=== PATIENT | male | born 1950 | race Caucasian/White ===

== ENCOUNTER 2017-04-25 00:58 | Observation (INO) | payer MEDICARE ==
[~2017-04-25] VITALS: Ht 180.3 cm; Wt 93.0 kg
[2017-04-25] VITALS (14 sets, daily range): BP systolic 135–182; BP diastolic 72–86; PULSE 59–82; RESP 16–20; TEMP 97.9–99.3; O2SAT 88–97
[~2017-04-25 00:58] MED LIST: CLIN150 PO; [UNRECOGNIZED DRUG - REMARK]; [UNRECOGNIZED DRUG - REMARK]
[2017-04-25] MEDS ORDERED: GLIP5TAB8 PO (01:19)
[2017-04-25] MEDS ORDERED: METF500T PO (01:19)
[2017-04-25] MEDS ORDERED: OFFICE MEDICATION PO ×2 (01:19)
--- NOTE | 2017-04-25 01:28 | PD ---
HPI Chief Complaint: Respiratory Symptoms Time Seen by Provider: 01:16 Travel History International Travel<30 days: No Contact w/Intl Traveler<30days: No Traveled to known affect area: No History of Present Illness HPI Patient is 67-year-old male with history of hypertension and diabetes, who presents to emergency room with his with complaints of not feeling well. Patient's reports that patient appeared short of breath tonight. Reports that he woke up from sleep complaining of shortness of breath. Patient reports that he then began to feel chest pain which radiated to his back. Patient reports that he has complete resolution of symptoms at this time. Patient with no chest pain at this time. Patient reports that he has a past smoker, he quit smoking tobacco about 10 years ago. Patient denies any recent travels or trips , denies history of PE or DVT. Patient presents the emergency room hypoxic with a pulse ox of 89% on room air. He does not use oxygen at home, denies history of COPD. Patient denies any recent travels or trips. PFSH Past Medical History Cancer: Yes (PROSTATE) Cardiovascular Problems: Yes Diabetes: Yes (TYPE 2) Diminished Hearing: No Radiation Therapy: Yes (PROSTATE CANCER) Past Surgical History Other Surgery: Yes (PROSTATE CRYOABLATION) Social History Alcohol Use: Yes (BEER DAILY) Tobacco Use: No Substance Use: No Allergies-Medications (Allergen,Severity, Reaction): Coded Allergies: No Known Allergies (Verified , 04/25/17) Reported Meds & Prescriptions Reported Meds & Active Scripts Active Reported Office Medication (Miscellaneous Medication) Misc 0.5 Tab PO HS Office Medication (Miscellaneous Medication) Misc 1 Tab PO AM Glipizide 5 Mg Tab 5 Mg PO BIDAC Take 30 minutes before a meal Metformin (Metformin HCl) 500 Mg Tab 500 Mg PO BIDPC With meals Review of Systems General / Constitutional: No: Fever Eyes: No: Visual changes HENT: No: Headaches Cardiovascular: Positive: Chest Pain or Discomfort Respiratory: Positive: Cough, No: Shortness of Breath Gastrointestinal: No: Abdominal Pain Genitourinary: No: Dysuria Musculoskeletal: No: Pain Skin: No Rash Neurologic: No: Weakness Psychiatric: No: Depression Endocrine: No: Polydipsia Hematologic/Lymphatic: No: Easy Bruising Physical Exam Narrative GENERAL: Mild distress SKIN: Focused skin assessment warm/dry. HEAD: Atraumatic. Normocephalic. EYES: Pupils equal and round. No scleral icterus. No injection or drainage. ENT: No nasal bleeding or discharge. Mucous membranes pink and moist. NECK: Trachea midline. No JVD. CARDIOVASCULAR: Regular rate and rhythm. No murmur appreciated. RESPIRATORY: No accessory muscle use. Clear to auscultation. Breath sounds equal bilaterally. GASTROINTESTINAL: Abdomen soft, non-tender, nondistended. Hepatic and splenic margins not palpable. MUSCULOSKELETAL: No obvious deformities. No clubbing. No cyanosis. No edema. NEUROLOGICAL: Awake and alert. No obvious cranial nerve deficits. Motor grossly within normal limits. Normal speech. PSYCHIATRIC: Appropriate mood and affect; insight and judgment normal. Data Data Last Documented VS Vital Signs Date Time Temp Pulse Resp B/P (MAP) Pulse Ox O2 Delivery O2 Flow Rate FiO2 04/25/17 03:00 73 19 163/77 (105) 96 Nasal Cannula 2.00 04/25/17 01:14 98.2 Orders Orders Electrocardiogram (04/25/17 01:16) B-Type Natriuretic Peptide (04/25/17 01:16) Complete Blood Count With Diff (04/25/17 01:16) Comprehensive Metabolic Panel (04/25/17 01:16) Magnesium (Mg) (04/25/17 01:16) Prothrombin Time / Inr (Pt) (04/25/17 01:16) Act Partial Throm Time (Ptt) (04/25/17 01:16) Troponin I (04/25/17 01:16) Lipase (04/25/17 01:16) Chest, Single Ap (04/25/17 01:16) Ecg Monitoring (04/25/17 01:16) Bilateral Bp Monitoring (04/25/17 01:16) Iv Access Insert/Monitor (04/25/17 01:16) Oximetry (04/25/17 01:16) Sodium Chloride 0.9% Flush (Ns Flush) (04/25/17 01:30) Cta Thor Abd Aorta W Iv C W3d (04/25/17 01:16) Type And Screen (04/25/17 01:16) Sodium Chlor 0.9% 1000 Ml Inj (Ns 1000 M (04/25/17 01:30) Arterial Blood Gas (Abg) (04/25/17 ) Iohexol 350 Inj (Omnipaque 350 Inj) (04/25/17 02:43) Admit Order (Ed Use Only) (04/25/17 03:36) Labs Laboratory Tests Test 04/25/17 01:32 04/25/17 02:05 White Blood Count 6.2 TH/MM3 Red Blood Count 4.44 MIL/MM3 Hemoglobin 14.3 GM/DL Hematocrit 41.5 % Mean Corpuscular Volume 93.5 FL Mean Corpuscular Hemoglobin 32.1 PG Mean Corpuscular Hemoglobin Concent 34.3 % Red Cell Distribution Width 13.0 % Platelet Count 170 TH/MM3 Mean Platelet Volume 9.6 FL Neutrophils (%) (Auto) 62.8 % Lymphocytes (%) (Auto) 27.1 % Monocytes (%) (Auto) 7.4 % Eosinophils (%) (Auto) 2.2 % Basophils (%) (Auto) 0.5 % Neutrophils # (Auto) 3.9 TH/MM3 Lymphocytes # (Auto) 1.7 TH/MM3 Monocytes # (Auto) 0.5 TH/MM3 Eosinophils # (Auto) 0.1 TH/MM3 Basophils # (Auto) 0.0 TH/MM3 CBC Comment DIFF FINAL Differential Comment Prothrombin Time 10.5 SEC Prothromb Time International Ratio 1.0 RATIO Activated Partial Thromboplast Time 22.8 SEC Blood Urea Nitrogen 13 MG/DL Creatinine 1.29 MG/DL Random Glucose 305 MG/DL Total Protein 7.4 GM/DL Albumin 3.6 GM/DL Calcium Level 8.8 MG/DL Magnesium Level 1.9 MG/DL Alkaline Phosphatase 62 U/L Aspartate Amino Transf (AST/SGOT) 24 U/L Alanine Aminotransferase (ALT/SGPT) 55 U/L Total Bilirubin 0.4 MG/DL Sodium Level 139 MEQ/L Potassium Level 3.8 MEQ/L Chloride Level 101 MEQ/L Carbon Dioxide Level 28.2 MEQ/L Anion Gap 10 MEQ/L Estimat Glomerular Filtration Rate 55 ML/MIN Troponin I LESS THAN 0.02 NG/ML B-Type Natriuretic Peptide 64 PG/ML Lipase 238 U/L Blood Gas Puncture Site RT RADIAL Blood Gas Patient Temperature 98.6 Blood Gas HCO3 23 mmol/L Blood Gas Base Excess -1.6 mmol/L Blood Gas Oxygen Saturation 90 % Arterial Blood pH 7.39 Arterial Blood Partial Pressure CO2 39 mmHg Arterial Blood Partial Pressure O2 64 mmHG Arterial Blood Oxygen Content 16.9 Vol % Arterial Blood Carboxyhemoglobin 1.2 % Arterial Blood Methemoglobin 0.6 % Blood Gas Hemoglobin 13.4 G/DL Oxygen Delivery Device ROOM AIR Blood Gas Inspired Oxygen 21 % MDM Medical Decision Making Medical Screen Exam Complete: Yes Emergency Medical Condition: Yes Medical Record Reviewed: Yes Interpretation(s) EKG at 0114: Sinus leeanne at 56bpm, qt/qtc: 418/410, no acute st or t wave changes Vital Signs Date Time Temp Pulse Resp B/P (MAP) Pulse Ox O2 Delivery O2 Flow Rate FiO2 04/25/17 01:20 61 17 150/76 (100) 93 Nasal Cannula 2.00 04/25/17 01:15 17 93 Nasal Cannula 2.00 04/25/17 01:14 98.2 59 20 161/77 (105) 88 04/25/17 01:02 97.9 60 16 176/80 (112) 88 Room Air Differential Diagnosis Differential includes aortic dissection, PE, pneumothorax, pneumonia, ACS, arrhythmia Narrative Course Patient hypoxic on emergency room, pulse ox is 88 -89% on room air. Patient reports that he woke up from sleep with shortness breath, with chest pain radiating to his back. Patient with resolution of symptoms at this time. Patient was placed on a bus driver/monitor upon arrival to the emergency room. Lab work including xray of chest and CTA to rule out dissection ordered. Will continue to monitor on a bus driver/monitor. Vital Signs Date Time Temp Pulse Resp B/P (MAP) Pulse Ox O2 Delivery O2 Flow Rate FiO2 04/25/17 03:00 73 19 163/77 (105) 96 Nasal Cannula 2.00 04/25/17 01:22 93 Nasal Cannula 2.00 04/25/17 01:20 61 17 150/76 (100) 93 Nasal Cannula 2.00 04/25/17 01:15 17 93 Nasal Cannula 2.00 04/25/17 01:14 98.2 59 20 161/77 (105) 88 04/25/17 01:02 97.9 60 16 176/80 (112) 88 Room Air Laboratory Tests Test 04/25/17 01:32 04/25/17 02:05 White Blood Count 6.2 TH/MM3 (4.0-11.0) Red Blood Count 4.44 MIL/MM3 (4.50-5.90) Hemoglobin 14.3 GM/DL (13.0-17.0) Hematocrit 41.5 % (39.0-51.0) Mean Corpuscular Volume 93.5 FL (80.0-100.0) Mean Corpuscular Hemoglobin 32.1 PG (27.0-34.0) Mean Corpuscular Hemoglobin Concent 34.3 % (32.0-36.0) Red Cell Distribution Width 13.0 % (11.6-17.2) Platelet Count 170 TH/MM3 (150-450) Mean Platelet Volume 9.6 FL (7.0-11.0) Neutrophils (%) (Auto) 62.8 % (16.0-70.0) Lymphocytes (%) (Auto) 27.1 % (9.0-44.0) Monocytes (%) (Auto) 7.4 % (0.0-8.0) Eosinophils (%) (Auto) 2.2 % (0.0-4.0) Basophils (%) (Auto) 0.5 % (0.0-2.0) Neutrophils # (Auto) 3.9 TH/MM3 (1.8-7.7) Lymphocytes # (Auto) 1.7 TH/MM3 (1.0-4.8) Monocytes # (Auto) 0.5 TH/MM3 (0-0.9) Eosinophils # (Auto) 0.1 TH/MM3 (0-0.4) Basophils # (Auto) 0.0 TH/MM3 (0-0.2) CBC Comment DIFF FINAL Differential Comment Prothrombin Time 10.5 SEC (9.8-11.6) Prothromb Time International Ratio 1.0 RATIO Activated Partial Thromboplast Time 22.8 SEC (24.3-30.1) Blood Urea Nitrogen 13 MG/DL (7-18) Creatinine 1.29 MG/DL (0.60-1.30) Random Glucose 305 MG/DL (74-106) Total Protein 7.4 GM/DL (6.4-8.2) Albumin 3.6 GM/DL (3.4-5.0) Calcium Level 8.8 MG/DL (8.5-10.1) Magnesium Level 1.9 MG/DL (1.5-2.5) Alkaline Phosphatase 62 U/L (45-117) Aspartate Amino Transf (AST/SGOT) 24 U/L (15-37) Alanine Aminotransferase (ALT/SGPT) 55 U/L (12-78) Total Bilirubin 0.4 MG/DL (0.2-1.0) Sodium Level 139 MEQ/L (136-145) Potassium Level 3.8 MEQ/L (3.5-5.1) Chloride Level 101 MEQ/L (98-107) Carbon Dioxide Level 28.2 MEQ/L (21.0-32.0) Anion Gap 10 MEQ/L (5-15) Estimat Glomerular Filtration Rate 55 ML/MIN (>89) Troponin I LESS THAN 0.02 NG/ML B-Type Natriuretic Peptide 64 PG/ML (0-100) Lipase 238 U/L (73-393) Blood Gas Puncture Site RT RADIAL Blood Gas Patient Temperature 98.6 Blood Gas HCO3 23 mmol/L (22-26) Blood Gas Base Excess -1.6 mmol/L (-2-2) Blood Gas Oxygen Saturation 90 % (90-100) Arterial Blood pH 7.39 (7.380-7.420) Arterial Blood Partial Pressure CO2 39 mmHg (38-42) Arterial Blood Partial Pressure O2 64 mmHG (61-120) Arterial Blood Oxygen Content 16.9 Vol % (12.0-20.0) Arterial Blood Carboxyhemoglobin 1.2 % (0-4) Arterial Blood Methemoglobin 0.6 % (0-2) Blood Gas Hemoglobin 13.4 G/DL (12.0-16.0) Oxygen Delivery Device ROOM AIR Blood Gas Inspired Oxygen 21 % Last Impressions Chest X-Ray 04/25/17115 Signed Impressions: Service Date/Time: Tuesday, April 25, 2017 01:17 - CONCLUSION: No acute disease. Karl Frazier Jr., MD Aorta CTA 04/25/17115 Signed Impressions: Service Date/Time: Tuesday, April 25, 2017 02:41 - CONCLUSION: 1. No acute abnormality. 2. Right upper lobe atelectasis. 3. Cardiomegaly. 4. Moderate size hiatal hernia. 5. Hepatic steatosis. 6. Colonic diverticulosis. Karl Frazier Jr., MD Patient reevaluated, patient reports that he is feeling much better at this time. CBC: WNL BMP: glucose 305 trop less than 0.02 ABG: wnl I am unsure why patient was initially hypoxic upon arrival to emergency room. Patient currently with a pulse ox of 90% on 2 L. CTA shows no acute abnormalities. Plan to observce him in the chest pain unit overnight. Patient agreeable to plan of care Diagnosis Primary Impression: Chest pain Qualified Codes: R07.9 - Chest pain, unspecified Admitting Information Admitting Physician Requests: Observation Terri Evans DO Apr 25, 2017 01:28
[2017-04-25] MEDS ORDERED: SODIUM CHLOR 0.9% 1000 ML INJ 1,000 ML IV ONE (01:30)
[2017-04-25] MEDS ORDERED: SODIUM CHLORIDE 0.9% FLUSH 10 ML FLUSH IVF PRN (01:30)
--- NOTE | 2017-04-25 01:35 | RADRPT ---
EXAM DATE/TIME: 04/25/2017 01:17 [facility] COMPARISON: No previous studies available for comparison. INDICATIONS : Pt had shortness of breath earlier today. MEDICAL HISTORY : None. SURGICAL HISTORY : None. ENCOUNTER: Initial ACUITY: 1 day PAIN SCORE: 7/10 LOCATION: Bilateral chest FINDINGS: A single view of the chest demonstrates the lungs to be symmetrically aerated without evidence of mas s, infiltrate or effusion. The cardiomediastinal contours are unremarkable. Osseous structures are intact. CONCLUSION: No acute disease. Karl Frazier Jr., MD on April 25, 2017 at 1:34 Board Certified Radiologist. This report was verified electronically.
[2017-04-25 01:46] LABS: AUTOMATED NEUTROPHIL # 3.9 TH/MM3 (1.8-7.7); BASOPHIL % 0.5 % (0.0-2.0); EOSINOPHIL # 0.1 TH/MM3 (0-0.4); EOSINOPHIL % 2.2 % (0.0-4.0); HEMATOCRIT 41.5 % (39.0-51.0); HEMO FLAGS DIFF FINAL; LYMPH % 27.1 % (9.0-44.0); LYMPHOCYTE # 1.7 TH/MM3 (1.0-4.8); MEAN CELL VOLUME 93.5 FL (80.0-100.0); MEAN CORPUSCULAR HEMOGLOBIN 32.1 PG (27.0-34.0); MEAN CORPUSCULAR HGB CONC 34.3 % (32.0-36.0); MONO % 7.4 % (0.0-8.0); NEUT % 62.8 % (16.0-70.0); PLATELET COUNT 170 TH/MM3 (150-450); RED BLOOD COUNT 4.44 MIL/MM3 (4.50-5.90); WHITE BLOOD COUNT 6.2 TH/MM3 (4.0-11.0)
[2017-04-25 01:57] LABS: APTT (PATIENT) 22.8 SEC (24.3-30.1); PROTHROMBIN TIME - PATIENT 10.5 SEC (9.8-11.6)
[2017-04-25 02:06] LABS: ALKALINE PHOSPHATASE 62 U/L (45-117); TOTAL BILIRUBIN ADULT 0.4 MG/DL (0.2-1.0)
[2017-04-25 02:13] LABS: ALT (GPT) 55 U/L (12-78); ANION GAP 10 MEQ/L (5-15); AST (GOT) 24 U/L (15-37); BICARBONATE 28.2 MEQ/L (21.0-32.0); BLOOD UREA NITROGEN 13 MG/DL (7-18); CHLORIDE 101 MEQ/L (98-107); GLOMERULAR FILTRATION RATE 55 ML/MIN (>89); MAGNESIUM 1.9 MG/DL (1.5-2.5); POTASSIUM 3.8 MEQ/L (3.5-5.1); SODIUM (NA) 139 MEQ/L (136-145)
[2017-04-25] MEDS ORDERED: IOHEXOL 350 MG/ML 10 ML VIAL (for RAD DIAG) IVCONTRAST ONE (02:43)
[2017-04-25 03:14] LABS: BLOOD GAS BASE EXCESS -1.6 mmol/L (-2-2); BLOOD GAS CARBOXYHEMOGLOBIN 1.2 % (0-4); BLOOD GAS HCO3 23 mmol/L (22-26); BLOOD GAS METHEMOGLOBIN 0.6 % (0-2); BLOOD GAS O2 HGB SATURATION 90 % (90-100); BLOOD GAS OXYGEN CONTENT 16.9 Vol % (12.0-20.0); BLOOD GAS PCO2 39 mmHg (38-42); BLOOD GAS PO2 64 mmHG (61-120); BLOOD GAS TOTAL HGB 13.4 G/DL (12.0-16.0); CRITICAL VALUE NO; DRAW SITE RT RADIAL; FIO2 21 %; NUMBER OF ARTERIAL PUNCTURES 1; OXYGEN DEVICE ROOM AIR; STAT YES; TEMP CORR TO 98.6; ULNAR PULSE PRESENT
--- NOTE | 2017-04-25 03:24 | RADRPT ---
EXAM DATE/TIME: 04/25/2017 02:41 [facility] COMPARISON: No previous studies available for comparison. INDICATIONS : Chest pain with shortness of breath. IV CONTRAST: 95 cc Omnipaque 350 (iohexol) IV RADIATION DOSE: 22.02 CTDIvol (mGy) MEDICAL HISTORY : Cardiovascular disease. Diabetes mellitus type 2. Carcinoma, prostate. SURGICAL HISTORY : Prostate cryoablation. ENCOUNTER: Initial ACUITY: 1 day PAIN SCALE: 4/10 LOCATION: chest TECHNIQUE: Volumetric scanning was performed using a multi-row detector CT scanner. The data was post processed with a variety of visualization algorithms including full volume maximum intensity projection, multi -planar sliding thin slab reformation, curved planar reformation, and surface rendering techniques. Using automated exposure control and adjustment of the mA and/or kV according to patient size, radiat ion dose was kept as low as reasonably achievable to obtain optimal diagnostic quality images. DICOM format image data is available electronically for review and comparison. FINDINGS: Thoracic/abdominal aorta: Scattered calcified atheromatous plaque. No aneurysmal change or dissection. Heart and mediastinum: The heart is mildly enlarged. No pericardial effusion. Coronary artery atherosclerotic calcifications are noted. Pulmonary arteries are normal in caliber. Moderate size hiatal hernia. No mass or adenopa thy. Lung parenchyma: No mass or infiltrate. No effusion. Other structures: Fat infiltration throughout the liver. Cortical cyst exophytic in the lower pole the left kidney. 3.4 cm in diameter. Hounsfield units 11. Colonic diverticulosis. CONCLUSION: 1. No acute abnormality. 2. Right upper lobe atelectasis. 3. Cardiomegaly. 4. Moderate size hiatal hernia. 5. Hepatic steatosis. 6. Colonic diverticulosis. Karl Frazier Jr., MD on April 25, 2017 at 3:17 Board Certified Radiologist. This report was verified electronically.
[2017-04-25] MEDS ORDERED: IOHEXOL 350 MG/ML 100 ML BTL (for Cath Lab) OTHER ONE (03:39)
[2017-04-25 05:39] LABS: CREATINE KINASE 53 U/L (39-308)
[2017-04-25 08:54] LABS: CREATINE KINASE 47 U/L (39-308)
--- NOTE | 2017-04-25 10:14 | HHI.HP ---
HPI Primary Care Physician Porfirio Zurita MD Chief Complaint Chest pain History of Present Illness 67-year-old male with history of diabetes and hypertension presents to emergency room for further evaluation of chest pain. Onset last evening, pain woke him up from sleep. Location substernal. Characterized as pressure, "like someone sitting on my chest." No radiation of pain. Duration 10 minutes. Associated symptoms included shortness of breath. Denied nausea, vomiting, diaphoresis. No known precipitating or relieving factors. Denies similar pain in the past. Review of Systems General: No fever, chills, or recent illness. Has been in his general state of health. HEENT: No BARRIOS CV: As stated above. Denies any current chest pain or pressure. No palpitations or dizziness. RESP: No SOB, cough, or sputum production. GI: No nausea, vomiting, or bowel changes. EXT: No lower leg edema, no paraesthesias MS: No discomfort or change in ROM NEURO: No difficulty with balance, LOC, motor/sensory deficits PSYCH: No anxiety, depression, or situational stress SKIN: No rashes, no concerning lesions Past Family Social History Allergies: Coded Allergies: No Known Allergies (Verified , 04/25/17) Past Medical History Diabetes type II, hypertension, prostate cancer Past Surgical History Prostate cryoablation Reported Medications Active Reported Office Medication (Miscellaneous Medication) Misc 0.5 Tab PO HS Office Medication (Miscellaneous Medication) Misc 1 Tab PO AM Glipizide 5 Mg Tab 5 Mg PO BIDAC Take 30 minutes before a meal Metformin (Metformin HCl) 500 Mg Tab 500 Mg PO BIDPC With meals Lisinopril 20 mg PO QD Simvastatin 40 mg PO QD dose unknown Active Ordered Medications Current Medications Medications (Trade) Dose Ordered Sig/Lupe Route Start Time Stop Time Status Last Admin (NS Flush) 2 ml UNSCH PRN IVF 04/25/17 01:30 Family History Noncontributory for early onset cardiovascular disease. Both parents lived into their 90s. Social History Known diabetes and hypertension. On appropriate statin therapy with diagnosis of diabetes. No known coronary artery disease. Former smoker, quit 10 years ago. Prior to quitting smoked 40 years. Endorses a daily beer. Active, somewhat limited due to a "bad left knee and both hips." Past cardiac testing None Physical Exam Vital Signs Vital Signs Date Time Temp Pulse Resp B/P (MAP) Pulse Ox O2 Delivery O2 Flow Rate FiO2 04/25/17 09:51 98.7 78 16 174/80 (111) 94 04/25/17 07:32 82 16 175/81 (112) 96 Room Air 04/25/17 04:00 78 19 162/75 (104) 97 Room Air 04/25/17 04:00 96 Nasal Cannula 2.00 04/25/17 03:00 73 19 163/77 (105) 96 Nasal Cannula 2.00 04/25/17 01:22 93 Nasal Cannula 2.00 04/25/17 01:20 61 17 150/76 (100) 93 Nasal Cannula 2.00 04/25/17 01:15 17 93 Nasal Cannula 2.00 04/25/17 01:14 98.2 59 20 161/77 (105) 88 04/25/17 01:02 97.9 60 16 176/80 (112) 88 Room Air Physical Exam GENERAL: Alert WN, WD, NAD, pleasant, male HEAD: NC, AT CV: RRR, without murmur, rub, gallop, no JVD, S1-S2 no S3-S4. RESP: Clear lungs throughout bilateral, no crackles, wheeze, rhonchi, symmetrical chest rise, nonlabored, able to speak in full sentences ABD: Soft, NT, ND, no masses, positive bowel tones BACK: No CVAT, no scoliosis EXT: Pulses +24, no dependent edema MS: Normal tone 4 extremities, nontender, no obvious deformities, full range of motion NEURO: CN II through CN XII grossly intact, motor strength 5/5 PSYCH: A+O 3, pleasant affect, appropriate speech, appropriate mood and affect , insight and judgment SKIN: Normal turgor, normal texture, no lesions, no rashes, brisk cap refill, even hair distribution Laboratory Laboratory Tests Test 04/25/17 01:32 04/25/17 02:05 04/25/17 04:58 04/25/17 08:05 White Blood Count 6.2 Red Blood Count 4.44 Hemoglobin 14.3 Hematocrit 41.5 Mean Corpuscular Volume 93.5 Mean Corpuscular Hemoglobin 32.1 Mean Corpuscular Hemoglobin Concent 34.3 Red Cell Distribution Width 13.0 Platelet Count 170 Mean Platelet Volume 9.6 Neutrophils (%) (Auto) 62.8 Lymphocytes (%) (Auto) 27.1 Monocytes (%) (Auto) 7.4 Eosinophils (%) (Auto) 2.2 Basophils (%) (Auto) 0.5 Neutrophils # (Auto) 3.9 Lymphocytes # (Auto) 1.7 Monocytes # (Auto) 0.5 Eosinophils # (Auto) 0.1 Basophils # (Auto) 0.0 CBC Comment DIFF FINAL Differential Comment Prothrombin Time 10.5 Prothromb Time International Ratio 1.0 Activated Partial Thromboplast Time 22.8 Blood Urea Nitrogen 13 Creatinine 1.29 Random Glucose 305 Total Protein 7.4 Albumin 3.6 Calcium Level 8.8 Magnesium Level 1.9 Alkaline Phosphatase 62 Aspartate Amino Transf (AST/SGOT) 24 Alanine Aminotransferase (ALT/SGPT) 55 Total Bilirubin 0.4 Sodium Level 139 Potassium Level 3.8 Chloride Level 101 Carbon Dioxide Level 28.2 Anion Gap 10 Estimat Glomerular Filtration Rate 55 Troponin I LESS THAN 0.02 LESS THAN 0.02 LESS THAN 0.02 B-Type Natriuretic Peptide 64 Lipase 238 Blood Gas Puncture Site RT RADIAL Blood Gas Patient Temperature 98.6 Blood Gas HCO3 23 Blood Gas Base Excess -1.6 Blood Gas Oxygen Saturation 90 Arterial Blood pH 7.39 Arterial Blood Partial Pressure CO2 39 Arterial Blood Partial Pressure O2 64 Arterial Blood Oxygen Content 16.9 Arterial Blood Carboxyhemoglobin 1.2 Arterial Blood Methemoglobin 0.6 Blood Gas Hemoglobin 13.4 Oxygen Delivery Device ROOM AIR Blood Gas Inspired Oxygen 21 Total Creatine Kinase 53 47 Result Diagram: 04/25/1713104/25/17131 Imaging Last Impressions Chest X-Ray 04/25/17115 Signed Impressions: Service Date/Time: Tuesday, April 25, 2017 01:17 - CONCLUSION: No acute disease. Karl Frazier Jr., MD Aorta CTA 04/25/17115 Signed Impressions: Service Date/Time: Tuesday, April 25, 2017 02:41 - CONCLUSION: 1. No acute abnormality. 2. Right upper lobe atelectasis. 3. Cardiomegaly. 4. Moderate size hiatal hernia. 5. Hepatic steatosis. 6. Colonic diverticulosis. Karl Frazier Jr., MD Course EKG Normal sinus rhythm, normal axis, no ST or T-segment change Caprini VTE Risk Assessment Caprini VTE Risk Assessment: Mod/High Risk (score >= 2) Caprini Risk Assessment Model Point Value = 1 Point Value = 2 Point Value = 3 Point Value = 5 Age 41-60 Minor surgery BMI > 25 kg/m2 Swollen legs Varicose veins or History of unexplained or recurrent spontaneous Oral contraceptives or hormone replacement Sepsis (< 1 month) Serious lung disease, including pneumonia (< 1 month) Abnormal pulmonary function Acute myocardial infarction Congestive heart failure (< 1 month) History of inflammatory bowel disease Medical patient at bed rest Age 61-74 Arthroscopic surgery Major open surgery (> 45 min) Laparoscopic surgery (> 45 min) Malignancy Confined to bed (> 72 hours) Immobilizing plaster cast Central venous access Age >= 75 History of VTE Family history of VTE Factor V Leiden Prothrombin [id number] Lupus anticoagulant Anticardiolipin antibodies Elevated serum homocysteine Heparin-induced thrombocytopenia Other congenital or acquired thrombophilia Stroke (< 1 month) Elective arthroplasty Hip, pelvis, or leg fracture Acute spinal cord injury (< 1 month) Prophylaxis Regimen Total Risk Factor Score Risk Level Prophylaxis Regimen 0-1 Low Early ambulation 2 Moderate Order ONE of the following: *Sequential Compression Device (SCD) *Heparin 5000 units SQ BID 3-4 Higher Order ONE of the following medications: *Heparin 5000 units SQ TID *Enoxaparin/Lovenox 40 mg SQ daily (WT < 150 kg, CrCl > 30 mL/min) *Enoxaparin/Lovenox 30 mg SQ daily (WT < 150 kg, CrCl > 10-29 mL/min) *Enoxaparin/Lovenox 30 mg SQ BID (WT < 150 kg, CrCl > 30 mL/min) AND/OR *Sequential Compression Device (SCD) 5 or more Highest Order ONE of the following medications: *Heparin 5000 units SQ TID (Preferred with Epidurals) *Enoxaparin/Lovenox 40 mg SQ daily (WT < 150 kg, CrCl > 30 mL/min) *Enoxaparin/Lovenox 30 mg SQ daily (WT < 150 kg, CrCl > 10-29 mL/min) *Enoxaparin/Lovenox 30 mg SQ BID (WT < 150 kg, CrCl > 30 mL/min) AND *Sequential Compression Device (SCD) Assessment and Plan Assessment and Plan #1 Chest pain-admitted to chest pain center. Ruled out with 3 sets of EKGs, cardiac enzymes, and monitored overnight. Seen and evaluated by Dr. Jorge Cotto. Will add d-dimer, if unremarkable will proceed with cardiac stress testing. Will need to complete a chemical stress test he states he is unable to walk long distances due to chronic knee and hip pain. Patient agreeable to plan of care. #2 Diabetes-SSI moderate dose coverage, hold oral anti-glycemic medications #3 Hypertension-continue to monitor, continue lisinopril 16:45 Lexiscan results showing mild severity, reversibility in inferior wall. Discussed findings with Dr. Cotto, will consult sheep farm worker and hospitalist. Explained results and plan of care in length with both patient and his . Agreeable to plan of care. Latoya Samuels Apr 25, 2017 10:14
[2017-04-25] MEDS ORDERED: DEXTROSE 50% IN WATER 50 ML VIAL(D50) IV PRN (10:15)
[2017-04-25] MEDS ORDERED: GLUCAGON 1 MG/ML VIAL OTHER PRN (10:15)
[2017-04-25] MEDS ORDERED: LISI-515 PO (11:46)
[2017-04-25] MEDS ORDERED: SIMV40TA PO (11:46)
[2017-04-25] MEDS: INSULIN ASPART SUPPLEMENTAL SCALE SQ SCH ×3 (12:00→21:08)
[2017-04-25] MEDS ORDERED: ONDANSETRON HCL 4 MG/2 ML VIAL IV PUSH PRN (12:45)
[2017-04-25] MEDS ORDERED: ACETAMINOPHEN 500 MG CPLT PO PRN (12:45)
[2017-04-25] MEDS ORDERED: NITROGLYCERIN 0.4 MG SL 25 TABS/BTL SL PRN (12:45)
--- NOTE | 2017-04-25 14:01 | EKG ---
Date Performed: 04/25/2017 Time Performed: 08:09:27 PTAGE: 67 years EKG: Sinus rhythm BORDERLINE ECG PREVIOUS TRACING : 04/25/2017 04.25 Since previous tracing, no significant change noted DOCTOR: Jorge Cotto Interpretating Date/Time 04/25/2017 13:59:46
--- NOTE | 2017-04-25 14:02 | EKG ---
Date Performed: 04/25/2017 Time Performed: 04:25:59 PTAGE: 67 years EKG: Sinus rhythm POSSIBLE RIGHT VENTRICULAR CONDUCTION DELAY BORDERLINE ECG PREVIOUS TRACING : 04/25/2017 01.14 Since previous tracing, no significant change noted DOCTOR: Jorge Cotto Interpretating Date/Time 04/25/2017 14:00:46
--- NOTE | 2017-04-25 14:04 | EKG ---
Date Performed: 04/25/2017 Time Performed: 01:14:33 PTAGE: 67 years EKG: SINUS BRADYCARDIA BORDERLINE ECG PREVIOUS TRACING : 10/27/1999 13.57 Since previous tracing, no significant change noted DOCTOR: Jorge Cotto Interpretating Date/Time 04/25/2017 14:02:41
[2017-04-25] MEDS ORDERED: REGADENOSON INJ 0.4 MG/5 ML SYR ONE (14:42)
--- NOTE | 2017-04-25 16:24 | RADRPT ---
EXAM DATE/TIME: 04/25/2017 13:51 [place] COMPARISON: No previous studies available for comparison. INDICATIONS : Substernal chest pain with dyspnea. Angina. DOSE: 26.1 mCi Tc99m Myoview at stress. 8.1 mCi Tc99m Myoview at rest. 0.4 mg Lexiscan STRESS SYMPTOMS: Shortness of breath. EJECTION FRACTION: 42% MEDICAL HISTORY : Carcinoma, prostate. Hypertension. Diabetes mellitus type 2. SURGICAL HISTORY : Prostate. ENCOUNTER: Initial ACUITY: 1 day PAIN SCALE: 5/10 LOCATION: Substernal chest TECHNIQUE: The patient underwent pharmacologic stress with infusion of prescribed dose. Continuous ECG tracing was monitored during stress. Gated SPECT imaging was performed after stress and conventional SPECT i maging was performed at rest. The examination was performed on a SPECT/CT scanner, both attenuation and non-corrected datasets were reviewed. FINDINGS: DISTRIBUTION: The maximum perfused segment at stress is in the septal wall. PERFUSION STUDY: The examination demonstrates a mild in severity, reversible perfusion defect involving the inferior w all. GATED STUDY: There is intact wall motion and thickening without hypokinetic or dyskinetic segments. CONCLUSION: 1. Reversible perfusion defect involving the inferior wall. Myocardial ischemia is not excluded. 2. Ejection fraction is somewhat low at 42%. RISK CATEGORY: Intermediate (1-3% Annual Mortality Rate) Edd Villanueva MD on April 25, 2017 at 16:19 Board Certified Radiologist. This report was verified electronically.
[2017-04-25] MEDS ORDERED: cloNIDine HCL 0.1 MG TAB PO PRN (16:45)
[2017-04-25] MEDS: LISINOPRIL 20 MG TAB PO SCH (17:01)
[2017-04-26] VITALS (12 sets, daily range): BP systolic 137–164; BP diastolic 65–82; PULSE 54–78; RESP 16–18; TEMP 97.6–98.6; O2SAT 94–97
[2017-04-26] MEDS: INSULIN ASPART SUPPLEMENTAL SCALE SQ SCH ×5 (08:00→22:26)
--- NOTE | 2017-04-26 08:43 | HHI.PR ---
Subjective Remarks The patient was initially admitted to the chest pain center and was evaluated by cardiology there underwent stress testing which showed possible ischemia. The patient was transferred to the hospitalist service for further evaluation and cardiology consultation. Follow-up for chest pain. Patient seen with at bedside. Patient states he 's been doing well during hospitalization. And denies any chest pain or shortness of breath He states that prior to admission he was woken up at night with chest heaviness that woke him up from sleep. Otherwise he hasn't noticed any chest pain or shortness breath. No pain with deep breathing. He states his blood sugars have been running higher here than what they were at home, does not know his last A1c. He states in the past she was taking a baby aspirin enzyme, was never prescribed, but has not been taking one recently. He was taking a half tablet of statin at night. Objective Vitals Vital Signs Date Time Temp Pulse Resp B/P (MAP) Pulse Ox O2 Delivery O2 Flow Rate FiO2 04/26/17 05:32 21 04/26/17 04:15 98.6 64 18 139/65 (89) 97 04/26/17 04:00 54 04/26/17 04:00 66 04/26/17 00:00 54 04/26/17 00:00 78 04/25/17 23:12 98.2 70 18 135/72 (93) 96 04/25/17 20:07 99.3 75 18 140/81 (100) 94 04/25/17 20:00 72 04/25/17 17:12 64 04/25/17 17:12 64 04/25/17 16:27 99.3 74 16 182/86 (118) 95 04/25/17 13:10 98.7 72 16 161/78 (105) 96 04/25/17 09:51 98.7 78 16 174/80 (111) 94 I/O 04/25/17 04/25/17 04/25/17 04/26/17 04/26/17 04/26/17 07:00 15:00 23:00 07:00 15:00 23:00 Intake Total 1000 ml Balance 1000 ml Intake IV Total 1000 ml Result Diagram: 04/25/17 01304/25/17 013 Imaging Last Impressions Chest X-Ray 04/25/17 011 Signed Impressions: Service Date/Time: Tuesday, April 25, 2017 01:17 - CONCLUSION: No acute disease. Karl Frazier Jr., MD Aorta CTA 04/25/17 0116 Signed Impressions: Service Date/Time: Tuesday, April 25, 2017 02:41 - CONCLUSION: 1. No acute abnormality. 2. Right upper lobe atelectasis. 3. Cardiomegaly. 4. Moderate size hiatal hernia. 5. Hepatic steatosis. 6. Colonic diverticulosis. Karl Frazier Jr., MD Myocardial Perfusion Scan Nuc Med 04/25/17 0000 Signed Impressions: Service Date/Time: Tuesday, April 25, 2017 13:51 - CONCLUSION: 1. Reversible perfusion defect involving the inferior wall. Myocardial ischemia is not excluded. 2. Ejection fraction is somewhat low at 42%%. RISK CATEGORY: Intermediate (1-3%% Annual Mortality Rate) Edd Villanueva MD Objective Remarks GENERAL: Well-developed well-nourished. Appears comfortable and in no acute distress. SKIN: Warm and dry. No lesions noted. HEENT: Normocephalic. Pupils equal and round. Mucous membranes pink and moist. CARDIOVASCULAR: Regular rate and rhythm. No murmur appreciated. RESPIRATORY: No accessory muscle use. Clear to auscultation. Breath sounds equal bilaterally. GASTROINTESTINAL: Abdomen soft, non-tender, nondistended. Bowel sounds x4. MUSCULOSKELETAL: No obvious deformities. No clubbing or cyanosis. No edema. NEUROLOGICAL: Awake and alert. No focal neurological deficits. Moves upper and lower extremities spontaneously. Normal speech. PSYCHIATRIC: Appropriate mood and affect; insight and judgment normal. A/P Assessment and Plan 67-year-old male with a past medical history of DM, HTN, HLD who presented for chest pain Chest pain: D-dimer mildly elevated, no pain with breathing, Chest CTA with no acute abnormality. ACS ruled out per protocol with unremarkable serial cardiac enzymes and EKGs. Nuclear stress test showed reversible perfusion defect involving the inferior wall. -Started on aspirin -Nitroglycerin as needed -Cardiology consulted, appreciate input -Home statin dose increased to 80 mg, check lipid profile -Monitor on telemetry Diabetes mellitus with hyperglycemia: Blood glucoses have not been well controlled here. -Check hemoglobin A1c -Hold home oral hypoglycemics for now -Monitor Accu-Cheks and cover with SSI as needed Hypertension: Reasonably controlled. -Continue lisinopril -Clonidine if needed DVT prophylaxis: SCDs Discharge Planning Follow-up cardiology recommendations Malick Berg Apr 26, 2017 08:43
[2017-04-26] MEDS: SODIUM CHLOR 0.9% 1000 ML INJ 1,000 ML IV SCH ×2 (08:45→18:45)
[2017-04-26] MEDS: ASPIRIN 325 MG TAB PO SCH (08:49)
[2017-04-26] MEDS: LISINOPRIL 20 MG TAB PO SCH (08:49)
[2017-04-26 12:50] LABS: ANION GAP 8 MEQ/L (5-15); BICARBONATE 25.8 MEQ/L (21.0-32.0); BLOOD UREA NITROGEN 14 MG/DL (7-18); CHLORIDE 103 MEQ/L (98-107); GLOMERULAR FILTRATION RATE 99 ML/MIN (>89); POTASSIUM 4.2 MEQ/L (3.5-5.1); SODIUM (NA) 137 MEQ/L (136-145)
[2017-04-26 12:54] LABS: HDL CHOLESTEROL 40.4 MG/DL (40.0-60.0); LDL CHOLESTEROL 106 MG/DL (0-99)
--- NOTE | 2017-04-26 17:41 | MB ---
cc: HELENE SALAS DATE OF CONSULTATION: 04/26/2017. REASON FOR CONSULTATION: MD ABBY Wilcox/[place] /5:17 PM /5:35 PM
[2017-04-26 18:01] LABS: HEMOGLOBIN A1a 1.3 %; HEMOGLOBIN F 1.4 %; HEMOGLOBIN P3 4.8 %
--- NOTE | 2017-04-26 18:30 | TR ---
Date Performed: 04/25/2017 Time Performed: 14:47:52 DOCTOR: Rajwinder Lopez DRUG LIST: CLINICAL HISTORY: ANGINA REASON FOR TEST: Angina REASON FOR ENDING: OBSERVATION: CONCLUSION: Lexiscan stress test was performed under standard four minute protocol. [place]ion[place] e was injected one minute prior to ending the test. No electrocardiographic abormalities were present to suggest ischemia. Nuclear imaging and interpretation are pending. COMMENTS:
[2017-04-26] MEDS ORDERED: PRAVASTATIN SOD 80 MG TAB PO SCH (21:00)
[2017-04-26] MEDS ORDERED: SODIUM CHLOR 0.9% 1000 ML INJ 1,000 ML IV SCH (22:00)
[2017-04-27] VITALS: PULSE 78
[2017-04-27 03:38] VITALS: BP 156/75; PULSE 61; RESP 18; TEMP 98; O2SAT 95
[2017-04-27] MEDS: SODIUM CHLOR 0.9% 1000 ML INJ 1,000 ML IV SCH (06:14)
[2017-04-27 07:38] VITALS: BP 171/77; PULSE 61; RESP 18; TEMP 98.1; O2SAT 95
[2017-04-27 08:00] VITALS: PULSE 66; PULSE 74
[2017-04-27] MEDS: INSULIN ASPART SUPPLEMENTAL SCALE SQ SCH ×2 (08:00→12:45)
--- NOTE | 2017-04-27 08:16 | HHI.PR ---
Subjective Remarks Follow up for chest pain. The patient reports feeling well again today. Denies any chest pain, palpitations, or shortness of breath. He is going for heart cath today. He denies any other medical complaints at this time. Objective Vitals Vital Signs Date Time Temp Pulse Resp B/P (MAP) Pulse Ox O2 Delivery O2 Flow Rate FiO2 04/27/17 07:38 98.1 61 18 171/77 (108) 95 04/27/17 03:38 98.0 61 18 156/75 (102) 95 04/27/17 00:00 78 04/27/17 00:00 78 04/26/17 23:24 98.4 67 18 137/74 (95) 95 04/26/17 21:45 60 04/26/17 20:39 96 21 04/26/17 20:22 98.0 68 18 164/82 (109) 95 04/26/17 17:23 97.6 68 16 163/79 (107) 96 04/26/17 16:13 69 04/26/17 12:42 98.4 61 18 164/77 (106) 94 04/26/17 08:55 97.8 66 16 147/78 (101) 97 04/26/17 08:43 95 21 Result Diagram: 04/25/17 0132 04/26/17 1135 Imaging Last Impressions Chest X-Ray 04/25/17115 Signed Impressions: Service Date/Time: Tuesday, April 25, 2017 01:17 - CONCLUSION: No acute disease. Karl Frazier Jr., MD Aorta CTA 04/25/17 0116 Signed Impressions: Service Date/Time: Tuesday, April 25, 2017 02:41 - CONCLUSION: 1. No acute abnormality. 2. Right upper lobe atelectasis. 3. Cardiomegaly. 4. Moderate size hiatal hernia. 5. Hepatic steatosis. 6. Colonic diverticulosis. Karl Frazier Jr., MD Myocardial Perfusion Scan Nuc Med 04/25/17 0000 Signed Impressions: Service Date/Time: Tuesday, April 25, 2017 13:51 - CONCLUSION: 1. Reversible perfusion defect involving the inferior wall. Myocardial ischemia is not excluded. 2. Ejection fraction is somewhat low at 42%%. RISK CATEGORY: Intermediate (1-3%% Annual Mortality Rate) Edd Villanueva MD Objective Remarks GENERAL: Well-nourished, well-developed pleasant middle aged male patient in [facility]. SKIN: Warm and dry. No rash. HEENT: Normocephalic. Atraumatic.Pupils equal and round. Mucous membranes pink and moist. CARDIOVASCULAR: Regular rate and rhythm. S1, S2 noted. No murmur appreciated. RESPIRATORY: No accessory muscle use. Clear to auscultation. Breath sounds equal bilaterally. GASTROINTESTINAL: Abdomen soft, non-tender, nondistended. Normoactive bowel sounds x4. MUSCULOSKELETAL: No obvious deformities. Extremities without clubbing, cyanosis , or edema. NEUROLOGICAL: Awake and alert. No obvious cranial nerve deficits. Motor grossly within normal limits. Normal speech. PSYCHIATRIC: Appropriate mood and affect; insight and judgment normal. Medications and IVs Current Medications Medications (Trade) Dose Ordered Sig/Lupe Route Start Time Stop Time Status Last Admin (NS Flush) 2 ml UNSCH PRN IVF 04/25/17 01:30 (D50w (Vial) Inj) 50 ml UNSCH PRN IV 04/25/17 10:15 (Glucagon Inj) 1 mg UNSCH PRN OTHER 04/25/17 10:15 (NovoLOG SUPPLEMENTAL SCALE) 1 ACHS SLIDING SCALE SQ 04/25/17 12:00 04/26/17 22:26 (Tylenol) 500 mg Q4H PRN PO 04/25/17 12:45 (Zofran Inj) 4 mg Q6H PRN IV PUSH 04/25/17 12:45 (Nitrostat Sl) 0.4 mg Q5M PRN SL 04/25/17 12:45 (Aspirin) 325 mg DAILY PO 04/26/17 09:00 04/26/17 08:49 (Prinivil) 20 mg DAILY PO 04/25/17 16:45 04/26/17 08:49 (Catapres) 0.1 mg Q6H PRN PO 04/25/17 16:45 (Pravachol) 80 mg HS PO 04/26/17 21:00 04/26/17 20:09 Sodium Chloride 1,000 ml @ 100 mls/hr Q10H IV 04/26/17 08:45 04/27/17 06:14 A/P Assessment and Plan 67-year-old male with a past medical history of DM, HTN, HLD who presented for chest pain Chest pain: D-dimer mildly elevated, no pain with breathing, Chest CTA with no acute abnormality. ACS ruled out per protocol with unremarkable serial cardiac enzymes and EKGs. Nuclear stress test showed reversible perfusion defect involving the inferior wall. -Started on aspirin daily, Nitroglycerin as needed -Home statin dose increased to 80 mg, lipid profile with elevated LDL 106 -Monitor on telemetry -Cardiology consulted, plan for [facility] today Diabetes mellitus with hyperglycemia: Blood glucoses have not been well controlled here. -hemoglobin A1c 9.3 -Hold home oral hypoglycemics for now -Monitor Accu-Cheks and cover with SSI as needed Hypertension: Reasonably controlled. -Continue lisinopril -Clonidine if needed DVT prophylaxis: SCDs Discharge Planning Further disposition pending [facility] today. 1545hrs: Patient reportedly cleared for discharge by Dr. Carbone s/p [facility]. Will discharge. Discharge patient to home Condition on discharge: Improved Heart Healthy/Diabetic Diet as tolerated Ad Carol activity Rx written: pravastatin 80mg hs, aspirin 81mg daily Follow-up with primary care physician Dr. Zurita in 1 week Mima Olsen PA-C Apr 27, 2017 8:16 am
[2017-04-27] MEDS: LISINOPRIL 20 MG TAB PO SCH (09:37)
[2017-04-27] MEDS: ASPIRIN 325 MG TAB PO SCH (09:37)
[2017-04-27 11:16] VITALS: BP 160/81; PULSE 62; RESP 18; TEMP 98.2; O2SAT 97
[2017-04-27 12:00] VITALS: PULSE 59
[2017-04-27] MEDS ORDERED: HEPARIN-NS/PF INJ 1,000 ML ONE (12:25)
[2017-04-27] MEDS ORDERED: MIDAZOLAM HCL 2 MG/2 ML VIAL ONE (12:26)
[2017-04-27] MEDS ORDERED: HEPARIN SODIUM - IV 10,000 UNITS/10 ML VIAL ONE (13:46)
[2017-04-27] MEDS ORDERED: ASPI-147 PO (15:36)
[2017-04-27] MEDS ORDERED: PRAV80TA PO (15:36)
--- NOTE | 2017-04-27 15:39 | HHI.DCPOC ---
Discharge Care Plan Diagnosis: (1) Chest pain (2) Diabetes mellitus (3) HTN (hypertension) (4) HLD (hyperlipidemia) Goals to Promote Your Health * To prevent worsening of your condition and complications * To maintain your health at the optimal level Directions to Meet Your Goals Take your medications as prescribed Follow your dietary instruction Follow activity as directed Keep your appointments as scheduled Take your immunizations and boosters as scheduled If your symptoms worsen call your PCP, if no PCP go to Urgent Care Center or Emergency Room Smoking is Dangerous to Your Health. Avoid second hand smoke Call the 24-hour hour crisis hotline for domestic abuse at Mima Olsen PA-C Apr 27, 2017 3:39 pm
[2017-04-27] MEDS ORDERED: ISOS30TA3 PO (17:20)
[2017-04-27] MEDS ORDERED: METO25TA6 PO (17:20)
[2017-04-27] MEDS ORDERED: ATOR1TAB18 PO (17:20)
--- NOTE | 2017-04-28 07:51 | MA ---
cc: ANA SALAS DATE 04/27/2017 INDICATION Unstable angina, Class III angina. The procedure is urgent, intermediate probability nuclear marker perfusion study. PROCEDURE PERFORMED 1. Retrograde left heart catheterization with left ventriculography and selective coronary angiography. 2. Moderate sedation. ACCESS SITE Right femoral artery. EQUIPMENT USED A 5-Polish pigtail catheter, 5-Polish JL4 and AR modified coronary artery catheters. MEDICATIONS Versed IV. Fentanyl IV. CONTRAST Omnipaque 80 cc. COMPLICATIONS None. ESTIMATED BLOOD LOSS Less than 10 cc. METHOD OF HEMOSTASIS Manual compression. RESULTS A. HEMODYNAMICS Heart rate 55 beats per minute. Left ventricular end-diastolic pressure 8 mmHg. Left ventricle 140/8. Aorta 140/62/91. B. LEFT VENTRICULOGRAPHY Left ventricular ejection fraction 55%. Wall motion normal. No mitral regurgitation. C. CORONARY ANGIOGRAPHY The left main coronary artery is patent. The left anterior descending coronary artery is patent. D1 patent. The left circumflex artery is patent. OM1 patent. OM2 patent. The ramus intermediate is patent. The right coronary artery is a dominant vessel which is totally occluded in the midportion with the distal vessel filling by left to right and right to right bridging collaterals. DIAGNOSES 1. Coronary artery disease with total occlusion of the right coronary artery with distal vessel filling by collaterals. 2. Overall preserved left ventricular systolic function. DISPOSITION Mr. Hess was found to have evidence of a totally occluded right coronary artery with distal vessel filling by abundant collaterals. I recommend to continue his current medical program including therapy for angina. I also recommend continuing aggressive modification of his cardiac risk factors including therapy for dyslipidemia. He can be discharged home later today. I will see him back for follow up in our office after discharge. Ana Salas MD OQ/SSB /4:42 PM /7:26 AM
--- NOTE | 2017-04-28 18:17 | MB ---
cc: HELENE SALAS DATE OF CONSULTATION 04/26/17 HISTORY OF PRESENT ILLNESS Mr. Hess is a 67 year old white male with history of diabetes mellitus and hypertension. He woke up with substernal chest discomfort which lasted for about 10 minutes associated shortness of breath. He was brought to the hospital and ruled out for myocardial function. He underwent a nuclear stress test which was positive for ischemia. PAST MEDICAL HISTORY 1. Type 2 diabetes mellitus, 2. Hypertension, 3. Prostate cancer 4. History of prostate cryoablation. MEDICATIONS At home include 1. Simvastatin. 2. Lisinopril. 3. Metformin. 4. Glipizide. ALLERGIES None. SOCIAL HISTORY The patient quit smoking 10 years ago. He drinks beer daily. FAMILY HISTORY Negative for heart disease. REVIEW OF SYSTEMS Review of systems is otherwise negative. PHYSICAL EXAMINATION VITAL SIGNS: Blood pressure 160/81, pulse 59 and regular. HEENT: Negative. 2+ carotid upstrokes. No bruits. LUNGS: Clear. HEART: Regular with no murmur, gallop or rub. ABDOMEN: Soft. No bruits. EXTREMITIES: Without edema. 2+ distal pulses. NEUROLOGIC: Grossly nonfocal. CARDIOLOGY STUDIES EKG was reviewed and showed sinus bradycardia with normal axis intervals, no acute changes. LABORATORY DATA Hemoglobin 14.3, potassium 4.2, creatinine 0.8, CK and troponin normal. LDL 106, HDL 40. DIAGNOSES 1. Angina 2. Abnormal nuclear myocardial perfusion study. 3. Diabetes mellitus. 4. Hypertension. DISPOSITION Mr. Hess will undergo cardiac catheterization and coronary intervention if necessary. The patient and his understand the risks and benefits and wished to proceed. We will continue aggressive modification of his cardiac risk factors including dyslipidemia and diabetes mellitus. MD ABBY Wilcox/ /5:10 PM /6:00 PM
== END 2017-04-27 19:00 | disposition home or self-care (01) ==
LOC: NEPC 00:58 → NEDA 03:38 → NEPGCP 08:36 → HCIS 18:45
PROVIDERS: ADMIT Internal Medicine; ATTEND Internal Medicine
DX: R07.9 Chest pain, unspecified (principal); E11.65 Type 2 diabetes mellitus with hyperglycemia; Z87.891 Personal history of nicotine dependence; R09.02 Hypoxemia; Z85.46 Personal history of malignant neoplasm of prostate; Z79.899 Other long term (current) drug therapy; Z79.84 Long term (current) use of oral hypoglycemic drugs; J98.11 Atelectasis; K44.9 Diaphragmatic hernia without obstruction or gangrene; K76.0 Fatty (change of) liver, not elsewhere classified; K57.30 Diverticulosis of large intestine without perforation or abscess without bleeding; I51.7 Cardiomegaly; I10 Essential (primary) hypertension; E78.5 Hyperlipidemia, unspecified; I25.110 Atherosclerotic heart disease of native coronary artery with unstable angina pectoris; R00.1 Bradycardia, unspecified
CPT/HCPCS: 36600; 71010; 71275; 74174; 78452; 80048; 80053; 80061; 82550; 82805; 82948; 83036; 83690; 83735; 83880; 84484; 85025; 85379; 85610; 85730; 86850; 86900; 86901; 93005; 93017; 93458; 96360; 96361; 96372; 99285; A9502; C1769; C1893; G0378; J1644; J1815; J2250; J2785; J3010; J7030; Q9967